=== PATIENT | female | born 1975 | race African-American/Black ===

== ENCOUNTER 2016-11-17 14:58 | Emergency (ER) | payer OTHER ==
--- NOTE | 2016-11-17 17:24 | DIAGNOSTIC IMAGING REPORT ---
PROCEDURE: CTA THORAX WITH CONTRAST INDICATION: PULMONARY EMBOLUS TECHNIQUE: 76 ml of Isovue 370 was injected intravenously and axial images were obtained of the chest with 3D sagittal and coronal MIP reconstructions. COMPARISON: None. FINDINGS: Normal opacification of the pulmonary arterial tree without filling defect. The central pulmonary arteries are normal caliber. Thoracic aorta is normal caliber without atherosclerotic calcification. The great vessels demonstrates normal branching pattern. Heart size is normal. No pericardial effusion. No adenopathy or mediastinal masses. The esophagus is normal in caliber without hiatal hernia. The airway is patent and branches normally. The lungs are clear. No pleural effusions or pneumothorax. Osseous structures are intact. The stomach is filled with ingested material. The images obtained of the upper abdomen are otherwise normal. IMPRESSION: 1. No pulmonary embolus. 2. Findings called to the emergency room.
--- NOTE | 2016-11-17 17:28 | ED NURSING NOTES ---
Clinical Report - Nurses [facility] [address] [place] [address] 11/17/2016 15:02 Patient: CADE BEAN TRIAGE Triage time 15:Nov 17 2016. Acuity: LEVEL 3. --15:32 Taiwo Gardner R.N. 15:29 11/17/16. BP: 130/75. HR: 106. RR: 20. O2 saturation: 100%. Temp: 98.4 F. --15:32 Taiwo Gardner R.N. Chief Complaint: (chest pain). --15:33 Taiwo Gardenr R.N. Weight: 63.5 kg stated. Height/Length: 60 inches Per Patient. BMI: 27.3. --15:51 Taiwo Gardner R.N. Medications Mucinex Oral. --15:31 Taiwo Gardner R.N. mag salts. --15:31 Taiwo Gardner R.N. Allergies Lyrica. --15:31 Taiwo Gardner R.N. History Arrived by private vehicle. ( Pt reports onset of MOORE on Monday started on muccinex, pt has been coughing since began having cp since yesterday lungs clear speaking in full sentences). --15:32 Taiwo Gardner R.N. SOCIAL HX: Never smoker. No alcohol use or drug use. --15:52 Taiwo Gardner R.N. PROBLEMS: Pulmonary Embolism. --15:32 Taiwo Gardner R.N. ADDITIONAL SURGERIES: Appendectomy. . --15:32 Taiwo Gardner R.N. Interventions ID and allergy band on patient. To treatment room. --15:32 Taiwo Gardner R.N. PHYSICAL ASSESSMENT GENERAL / NEURO / PSYCH: Alert. Oriented X 4. Appears in no acute distress. HEENT: Pupils equal, round and reactive to light. No facial asymmetry noted. Mucous membranes are pink. RESPIRATORY: Mild respiratory distress. The patient can speak in full sentences. GI / : Abdomen soft. SKIN: Skin is warm and dry. --15:53 Taiwo Gardner R.N. NURSING PROGRESS NOTES 15:51 11/17/2016 Site #1 started via IV in the left antecubital space with an 18g angiocath, with aseptic technique and good blood return; one attempt. Blood drawn: rainbow set. Labeled in the presence of the patient and sent to the lab. Saline lock flushed with saline. --15:51 Taiwo Gardner R.N. Pulse oximeter placed on patient. Two patient identifiers checked. Call light placed in reach. Side rails up x 1. Bed placed in lowest position. --15:53 Taiwo Gardner R.N. 16:19 11/17/16. EKG time: (1532 PM). EKG was ordered, performed by a tech and shown to the ED physician. --16:19 Emilie Tan 17:43 11/17/16. BP: 105/60. HR: 81. O2 saturation: 99%. --17:43 Taiwo Gardner R.N. 17:44 11/17/2016 Toradol IVP 30 mg given over 30 minute(s) via site #1. Allergies verified and confirmed 5 rights. IV patency established. IV site checked: no pain, redness, or swelling. IV flushed thoroughly pre- and post-medication administration. IVP given by RN. --17:44 Taiwo Gardner R.N. DISPOSITION / DISCHARGE <<STRICKEN ENTRY-- 15:59 11/17/16. BP: 108/67. HR: 72. RR: 18. O2 saturation: 96%. Temp: 98.3 F. Pain level now 4/10. --16:00 Taiwo Gardner R.N. --END STRIKE>> Charted on wrong patient. --16:00 Taiwo Gardner R.N. <<STRICKEN ENTRY-- Departure time: 1557. Condition at departure: improved. The goals identified in the patient's plan of care were met. No learning barriers present. Discharge instructions provided and reviewed with the patient and family. Reviewed warnings. Reviewed medication(s). Treatments reviewed. Reviewed referrals. The patient was discharged by the nurse practitioner. She was discharged home and accompanied by family. She left the Emergency Department ambulatory and via private vehicle. Family member driving. --16:00 Taiwo Gardner R.N. --END STRIKE>> Charted On Wrong Patient --16:00 Taiwo Gardner R.N. 17:51 11/17/2016 Site #1 removed upon discharge. Bandage applied. --17:51 Taiwo Gardner R.N. Departure time: 17:53 Nov 17 2016. Condition at departure: improved. No learning barriers present. Discharge instructions provided and reviewed with the patient. Reviewed warnings. Reviewed medication(s). Treatments reviewed. Reviewed referrals. Patient verbalized understanding. Written instructions provided in [place]. The patient was discharged by the nurse practitioner. She was discharged home and accompanied by family. She left the Emergency Department ambulatory and via private vehicle. Family member driving. --17:53 Taiwo Gardner R.N. 17:51 11/17/16. BP: 105/66. HR: 89. RR: 18. O2 saturation: 100%. Temp: 98.5 F. Pain level now 0/10. --17:53 Taiwo Gardner R.N. Departure time: 1600. --17:59 Taiwo Gardner R.N. Locked/Released at 11/17/2016 22:23 by Taiwo Gardner R.N.
--- NOTE | 2016-11-17 17:28 | ED ORDER SUMMARY ---
..... Patient: CADE BEAN OrderSheet [facility] VisitID: [id number] [place] [address] 41y, F Registration Date/Time: 11/17/2016 ORDER SHEET Weight: 63.5 kg (stated) Allergies: Lyrica GENERAL ORDERS: CTA Thorax w Cont (No) (pending) Urgent (15:37 11/17/2016 HBivens A.R.N.P.) (Ack 15:40 OHernandez) CBC w Diff Urgent (15:37 11/17/2016 HBivens A.R.N.P.) (Ack 15:38 OHernandez) (16:47 TBergley) CMP Urgent (15:37 11/17/2016 HBivens A.R.N.P.) (Ack 15:39 OHernandez) (16:47 TBergley) CPK Urgent (15:37 11/17/2016 HBivens A.R.N.P.) (Ack 15:39 OHernandez) (16:47 TBergley) Troponin-I Urgent (15:37 11/17/2016 HBivens A.R.N.P.) (Ack 15:39 OHernandez) (16:47 TBergley) D-Dimer Urgent (15:37 11/17/2016 HBivens A.R.N.P.) (Ack 15:40 OHernandez) (16:47 TBergley) Serum Qualitative Urgent (15:37 11/17/2016 HBivens A.R.N.P.) (Ack 15:40 OHernandez) (16:48 TBergley) MEDICATION ORDERS: IV FLUIDS: IV Saline Lock (15:37 11/17/2016 HBivens A.R.N.P.) (15:51 DBeyer R.N.) Toradol IV 30 mg (NOW) (17:26 11/17/2016 HBivens A.R.N.P.) (17:44 DBeyer R.N.) ORDER SHEET NOTES: [Electronically signed by Fany Major.R.N.PNick (20:02 11/17/2016)] [Electronically signed by Taiwo Gardner R.N. (11/17/2016)] [Electronically locked/signed by Taiwo Gardner R.N. (11/17/2016)]
--- NOTE | 2016-11-17 17:28 | ED ORDER SUMMARY ---
..... Patient: CADE BEAN OrderSheet [facility] VisitID: [id number] [place] [address] 41y, F Registration Date/Time: 11/17/2016 ORDER SHEET Weight: 63.5 kg (stated) Allergies: Lyrica GENERAL ORDERS: CTA Thorax w Cont (No) (pending) Urgent (15:37 11/17/2016 HBivens A.R.N.P.) (Ack 15:40 OHernandez) CBC w Diff Urgent (15:37 11/17/2016 HBivens A.R.N.P.) (Ack 15:38 OHernandez) (16:47 TBergley) CMP Urgent (15:37 11/17/2016 HBivens A.R.N.P.) (Ack 15:39 OHernandez) (16:47 TBergley) CPK Urgent (15:37 11/17/2016 HBivens A.R.N.P.) (Ack 15:39 OHernandez) (16:47 TBergley) Troponin-I Urgent (15:37 11/17/2016 HBivens A.R.N.P.) (Ack 15:39 OHernandez) (16:47 TBergley) D-Dimer Urgent (15:37 11/17/2016 HBivens A.R.N.P.) (Ack 15:40 OHernandez) (16:47 TBergley) Serum Qualitative Urgent (15:37 11/17/2016 HBivens A.R.N.P.) (Ack 15:40 OHernandez) (16:48 TBergley) MEDICATION ORDERS: IV FLUIDS: IV Saline Lock (15:37 11/17/2016 HBivens A.R.N.P.) (15:51 DBeyer R.N.) Toradol IV 30 mg (NOW) (17:26 11/17/2016 HBivens A.R.N.P.) (17:44 DBeyer R.N.) ORDER SHEET NOTES: [Electronically signed by Fany Major.R.N.PNick (20:02 11/17/2016)] [Electronically signed by Taiwo Gardner R.N. (11/17/2016)] [Electronically locked/signed by Taiwo Gardner R.N. (11/17/2016)]
--- NOTE | 2016-11-17 17:28 | ED CLINICAL REPORT ---
Clinical Report - Physicians/Mid Levels [facility] [address] [place] [address] 11/17/2016 15:02 Patient: CADE BEAN Time Seen: 1530. Arrived- By private vehicle. Historian- patient. HISTORY OF PRESENT ILLNESS Chief Complaint: COUGH. This started about 4 - 5 days ago and is still present. The illness is described as moderate. The patient has had sputum production, a cough and chest discomfort. She has had difficulty breathing (feels sob at times). No chest pain, fever, muscle aches or sore throat. No nasal congestion or discharge, sinus pressure, sinus drainage or ear pain. Additional history - No known contact with a sick individual. No recent travel. Similar symptoms previously: Once, worse. Recent medical care: The patient was seen recently in a clinic. ( was at [email or web address] and sent here to r/o pe). REVIEW OF SYSTEMS All systems otherwise negative, except as recorded above. PAST HISTORY See nurses notes. PROBLEMS: Pulmonary Embolism. --15:32 Taiwo Gardner R.N. ADDITIONAL SURGERIES: Appendectomy. . --15:32 Taiwo Gardner R.N. SOCIAL HISTORY Never smoker. No alcohol use or drug use. No recent travel. Is a local resident. FAMILY HISTORY Negative. ADDITIONAL NOTES The nursing notes have been reviewed with agreement regarding the chief complaint, HPI, ROS, PMH and patient medications and allergies. PHYSICAL EXAM Vital Signs: 11/17/2016 15:29 BP: 130/75. HR: 106. RR: 20. O2 saturation: 100%. Temp: 98.4 F. Have been reviewed as abnormal and appear to be correct. Blood pressure normal. Tachycardic. Respiratory rate normal. Temperature normal. Oxygen saturation normal. Appearance: Alert. No acute distress. Eyes: Pupils equal, round and reactive to light. Eyes normal inspection. ENT: Ears normal. Nose normal. Pharynx normal. Uvula midline. Neck: Normal inspection. Neck supple. CVS: Heart rate / rhythm abnormal. Tachycardia (ventricular rate = 104). Heart sounds normal. Pulses normal. Respiratory: No respiratory distress. Breath sounds normal. Back: Normal inspection. Skin: Skin warm and dry. Normal skin color. No rash. Normal skin turgor. Extremities: Extremities exhibit normal ROM. No lower extremity edema. Neuro: Oriented X 3. No motor deficit. No sensory deficit. LABS, X-RAYS, AND EKG EKG: EKG time: (1531). No acute process. No acute ischemia. Normal EKG. Rate: 101. Normal EKG. The study has been interpreted contemporaneously by me (and dr juárez). The EKG appears to be a good tracing. Interpretation time: 1531. Chest CT: No acute disease. (IMPRESSION: 1. No pulmonary embolus. 2. Findings called to the emergency room. Electronically Final signed by:Victoria Daniels MD 11/17/2016 5:25:15 PM). The study was interpreted by the radiologist and contemporaneously by me and discussed with the radiologist. Laboratory Tests: CBC w Diff: (PENNY: 11/17/2016 15:47) ( MsgRcvd 11/17/2016 16:30) Final results Test Result Flag Units (Reference) WHITE BLOOD COUNT 5.9 K/uL (4.5-11.5) RED BLOOD COUNT 3.37 L M/uL (4.00-5.20) HEMOGLOBIN 9.2 L gm/dL (12.0-16.0) HEMATOCRIT 28.4 L % (36.0-46.0) MEAN CELL VOLUME 85 fL (80-100) MEAN CORPUSCULAR HGB 27 pg (26-34) MEAN CORPUSCULAR HGB CONC 32 g/dL (31-37) RED CELL DISTRIBUTION WIDTH 19.8 H % (11.6-14.8) PLATELET COUNT 201 K/uL (150-400) NEUTROPHIL % 63.0 % (50-75) LYMPH % 28.2 % (25-40) MONO % 8.6 % (3-14) EOSINOPHIL % 0.2 % (0-4) BASOPHIL % 0 % (0-2) [id number]: (PENNY: 11/17/2016 15:47) ( MsgRcvd 11/17/2016 16:56) Final results Test Result Flag Units (Reference) D-DIMER QUANTITATIVE 1.57 H ug/mLFEU (0.27-0.52) The primary value of this quantitative assay relates toits negative predictive value (i.e. exclusion) of pulmonaryembolism/deep vein thrombosis/DIC.Elevated levels of d-dimer may also occur with:, age, cancer, inflammation, liver disease,post-op, infection, hematoma, coronary disease, peripheralarteriopathy, bleeding disorders and thrombolytic treatment.Results should be correlated with other clinical andradiological data.Testing Methodology: Latex Immunoassay CMP: (PENNY: 11/17/2016 15:47) ( MsgRcvd 11/17/2016 16:30) Final results Test Result Flag Units (Reference) GLUCOSE 120 H mg/dL (70-110) BUN 8 mg/dL (7-18) CREATININE 0.7 mg/dL (0.6-1.3) Estimated GFR >60 mL/min Estimated GFR- >60 mL/min Note: Persistent reduction over 3 months in eGFR<60 mL/min/1.73 m2 defines CKD. Patients with eGFR values>=60 mL/min/1.73 m2 may also have CKD if evidence ofpersistent proteinuria. Additional information may be foundat www.kidney.org. SODIUM 139 mmol/L (136-145) POTASSIUM 3.5 mmol/L (3.5-5.1) CHLORIDE 102 mmol/L (98-107) CARBON DIOXIDE 26 mmol/L (21-32) CALCIUM 8.5 mg/dL (8.5-10.1) TOTAL PROTEIN 8.1 g/dL (6.4-8.2) ALBUMIN 3.3 g/dL (3.3-5.0) BILIRUBIN, TOTAL 0.2 mg/dL (0.0-1.0) ALKALINE PHOSPHATASE 54 U/L (46-116) AST (SGOT) 24 U/L (15-37) ALT (SGPT) 24 U/L (12-78) CPK 66 U/L (24-260) TROPONIN I <0.05 L ng/mL (0.00-1.5) TROPONIN REFERENCE RANGE:<0.1 NEGATIVE0.1-1.5 INDETERMINANT>1.5 POSITIVE . PROGRESS AND PROCEDURES Course of Care: report taken from PA from , sending pt by pov to er to r/o pe. Patient counseled in person regarding the patient's stable condition, test results and diagnosis. 17:26. Differential Diagnosis: Other possible considerations: pe, bronchitis, pneumonia, viral illness, flu, uri, sinusitis, chf. Above considerations are based on history, physical exam, laboratory data, EKG and other information. Differential diagnosis was discussed with patient. Disposition: Discharged home in good and improved condition (17:28). Condition: good and stable. CLINICAL IMPRESSION Acute viral rhinitis. INSTRUCTIONS Alternate Tylenol (Acetaminophen) and Motrin (Ibuprofen) for fever, temperature greater than 101 degrees. Take according to label instructions. Do not work today, for two days. Drink plenty of fluids for the next 24 hours until better. Warnings: GENERAL WARNINGS: Return or contact your physician immediately if your condition worsens or changes unexpectedly, if not improving as expected, or if other problems arise. Specifically return if problem worsens. Follow-up: Follow up with your doctor in about five days even if well. Call for an appointment. Summary of care provided to patient. Understanding of the discharge instructions verbalized by patient. (Electronically signed by Fany Major A.R.N.P. 11/17/2016 20:02)
--- NOTE | 2016-11-17 22:24 | ED MED RECONCILIATION SUMMARY ---
Patient: CADE BEAN Medication Reconciliation Report [facility] VisitID: [id number] [address] [place] [address] 41y, F Registration Date/Time: 11/17/2016 Weight: 63.5 kg Height/Length: 60 in. BMI: 27.3 ALLERGIES: Lyrica The patient's Home Medications are listed below: THE FOLLOWING MEDICATIONS NEED TO BE RECONCILED: mag salts Mucinex Oral The source(s) of the original Home Medication information: Not obtained. The following Medications were given to the patient in the Emergency Department: Toradol [IVP] IVP 30 mg, administered: 11/17/2016 5:44:00 PM The following Medications were prescribed to the patient: None.
--- NOTE | 2016-11-17 22:24 | ED MED RECONCILIATION SUMMARY ---
Patient: CADE BEAN Medication Reconciliation Report [facility] VisitID: [id number] [address] [place] [address] 41y, F Registration Date/Time: 11/17/2016 Weight: 63.5 kg Height/Length: 60 in. BMI: 27.3 ALLERGIES: Lyrica The patient's Home Medications are listed below: THE FOLLOWING MEDICATIONS NEED TO BE RECONCILED: mag salts Mucinex Oral The source(s) of the original Home Medication information: Not obtained. The following Medications were given to the patient in the Emergency Department: Toradol [IVP] IVP 30 mg, administered: 11/17/2016 5:44:00 PM The following Medications were prescribed to the patient: None.
--- NOTE | 2016-11-17 22:24 | ED MAR SUMMARY ---
..... Medication Administration Record [facility] [address] [place] [address] Patient: CADE BEAN Visit ID: [id number] 41y, F Weight: 63.5 kg Height/Length: 60 in BMI: 27.3 ALLERGIES: Lyrica Given 17:44 11/17/2016 Taiwo Gardner R.N. Medication Administered: TORADOL [IVP], Dose: 30 mg IVP over 30 minute(s), Site: #1 left AC. Medication Ordered: Toradol IV 30 mg (NOW).
--- NOTE | 2016-11-17 22:24 | ED DISCHARGE INSTRUCTIONS ---
Patient: CADE BEAN General Instructions [facility] VisitID: [id number] [place] [address] 41y, F Registration Date/Time: 11/17/2016 Acute viral rhinitis. INSTRUCTIONS Alternate Tylenol (Acetaminophen) and Motrin (Ibuprofen) for fever, temperature greater than 101 degrees. Take according to label instructions. Do not work today, for two days. Drink plenty of fluids for the next 24 hours until better. Warnings: GENERAL WARNINGS: Return or contact your physician immediately if your condition worsens or changes unexpectedly, if not improving as expected, or if other problems arise. Specifically return if problem worsens. Follow-up: Follow up with your doctor in about five days even if well. Call for an appointment. Summary of care provided to patient. Understanding of the discharge instructions verbalized by patient. ADDITIONAL INFORMATION Viral Respiratory Illness [Adult] You have an Upper Respiratory Illness (URI) caused by a virus. This illness is contagious during the first few days. It is spread through the air by coughing and sneezing or by direct contact (touching the sick person and then touching your own eyes, nose or mouth). Most viral illnesses go away within 7-10 days with rest and simple home remedies. Sometimes, the illness may last for several weeks. Antibiotics will not kill a virus and are generally not prescribed for this condition. Home Care: 1) If symptoms are severe, rest at home for the first 2-3 days. When you resume activity, don't let yourself get too tired. 2) Avoid being exposed to cigarette smoke (yours or others). 3) Tylenol (acetaminophen) or ibuprofen (Advil, Motrin) will help fever, muscle aching and headache. (Persons under 18 with fever should not take aspirin since this may cause liver damage.) 4) Your appetite may be poor, so a light diet is fine. Avoid dehydration by drinking 6-8 glasses of fluids per day (water, soft drinks, juices, tea, soup). Extra fluids will help loosen secretions in the nose and lungs. 5) Vdod-glx-qyxykwf cold medicines will not shorten the length of time youre sick, but they may be helpful for the following symptoms: cough (Robitussin DM); sore throat (Chloraseptic lozenges or spray); nasal and sinus congestion (Actifed, Sudafed, Chlortrimeton). Follow Up with your doctor or as advised if you dont improve over the next week. Get Prompt Medical Attention if any of the following occur: -- Cough with lots of colored sputum (mucus) or blood in your sputum -- Chest pain, shortness of breath, wheezing or have trouble breathing -- Severe headache; face, neck or ear pain -- Fever over 100.4 F (38.0 C) for more than three days -- You cant swallow due to throat pain Fever Control (Adult) A fever is a natural reaction of the body to an illness. In most cases, the temperature itself is not harmful. It actually helps the body fight infections. A fever does not need to be treated unless you feel very uncomfortable. Home Care If you feel warm, check your temperature. If you feel very uncomfortable and your temperature is at or higher than 100.4F (38C) oral, you may take acetaminophen (Tylenol) every 4 to 6 hours. If you cant take or keep down oral medicine, ask your pharmacist for Tylenol suppositories, which you can get without a prescription. If the fever does not respond to acetaminophen within 1 hour, take ibuprofen (Advil or Motrin). If this works, keep taking the ibuprofen every 6 to 8 hours. Note: If you have chronic liver or kidney disease or ever had a stomach ulcer or GI bleeding, talk with your doctor before using these medications. If either medication alone does not keep the fever down, you may alternate the two medicines every 3 to 4 hours, only if your healthcare provider has instructed you to do so. For example, take Motrin then wait 3 hours, take Tylenol then wait 3 hours, take Motrin, and so on. Follow your healthcare providers instructions exactly. Clothing: Keep clothing light because excess body heat is lost through the skin. The fever will go up if you wear extra layers or wrap in blankets. Fluids: Fever causes the body to lose water through evaporation. Drink plenty of fluids such as water, juice, clear sodas, yaz tyson, or lemonade. Do not use aspirin in anyone under 18 years of age who is ill with a fever. It can cause severe liver damage. Follow Up with your doctor or as advised by our staff if you do not get better after 48 hours. Get Prompt Medical Attention if any of the following occur: Fever does not get better after taking fever medication Fast or difficult breathing Earache, sinus pain, stiff or painful neck, headache, repeated diarrhea or vomiting You feel unusually irritable, drowsy, or confused A rash appears You feel weak or dizzy, or that you might faint You have been given the following additional information: Uri, Viral, No Abx (Adult) Fever Control (Adult) Do not work today, for two days. (Electronically signed by Fany Major A.R.N.P. 11/17/2016 20:02)
--- NOTE | 2016-11-17 22:24 | ED MAR SUMMARY ---
..... Medication Administration Record [facility] [address] [place] [address] Patient: CADE BEAN Visit ID: [id number] 41y, F Weight: 63.5 kg Height/Length: 60 in BMI: 27.3 ALLERGIES: Lyrica Given 17:44 11/17/2016 Taiwo Gardner R.N. Medication Administered: TORADOL [IVP], Dose: 30 mg IVP over 30 minute(s), Site: #1 left AC. Medication Ordered: Toradol IV 30 mg (NOW).
== END 2016-11-17 16:00 | disposition home or self-care (01) ==
LOC: ED SRH 14:58
DX: J00 Acute nasopharyngitis [common cold] (principal); B97.89 Other viral agents as the cause of diseases classified elsewhere; Z88.8 Allergy status to other drugs, medicaments and biological substances
CPT/HCPCS: 90100; 90616; 91556; 92610; 95059; 98428